=== PATIENT | female | born 1950 | race Two or more races ===

== ENCOUNTER 2024-06-01 13:17 | Emergency (ER) | payer MEDICARE, OTHER ==
[~2024-06-01] VITALS: Ht 157.5 cm; Wt 67.1 kg
[2024-06-01] MEDS: SODIUM CHLORIDE 0.9% 1,000 ML IV ONE (16:46)
[2024-06-01 16:47] LABS: Basophils # (auto) 0 10 ^3/uL (0-0.2); Basophils % (auto) 0.4 % (0.0-2.0); Eosinophils # (auto) 0.6 10 ^3/uL (0-0.8); Hematocrit 40.4 % (36.0-46.0); Hemoglobin 13.7 g/dL (12.2-16.2); Lymphocytes # (auto) 1.8 10 ^3/uL (0.4-5.4); Lymphocytes % (auto) 27.6 % (10.0-50.0); Mean Corpuscular Hemoglobin 28.2 pg (28.0-32.0); Mean Corpuscular Hgb Conc. 33.8 g/dL (32.0-36.0); Mean Corpuscular Volume 83.4 fL (80.0-100.0); Monocytes # (auto) 0.6 10 ^3/uL (0-1.3); Monocytes % (auto) 9.1 % (0.0-12.0); Neutrophils # (auto) 3.5 10 ^3/uL (1.6-8.6); Neutrophils % (auto) 53.9 % (37.0-80.0); Nucleated Red Blood Cells % 0.3 %; Red Blood Cells 4.85 10^6/uL (4.0-5.20); Red Cell Distribution Width 13.3 % (11.8-14.3); White Blood Cell 6.5 10^3/uL (4.4-10.8)
[2024-06-01 16:56] LABS: Chloride 101 mmol/L (98-107); Potassium 4.1 mmol/L (3.5-5.1); Sodium 135 mmol/L (136-145)
[2024-06-01 16:57] LABS: Anion Gap 7 (5-15); Calcium 8.9 mg/dL (8.7-10.4); Carbon Dioxide 27 mmol/L (20-30)
[2024-06-01 17:02] LABS: Glucose 377 mg/dL (74-106)
[2024-06-01] MEDS: InsuLIN REG 1unit/0.01ml Soln (100units/ml) IV ONE (17:34)
[2024-06-01] MEDS: cefTRIAXone 1GM/50ML D5W 50 ML IV ONE (17:38)
[2024-06-01] MEDS: methylPREDNISolone SOD SUCC 125 MG/2 ML VL IV ONE (17:38)
[2024-06-01 17:52] LABS: Urine Bacteria None Seen /hpf (None Seen)
[2024-06-01 17:55] LABS: BUN/Creatinine Ratio 13.2 (10.0-20.0); Blood Urea Nitrogen 12 mg/dL (9-23)
[2024-06-01] MEDS: SODIUM CHLORIDE 0.9% 500 ML IV ONE (17:59)
[2024-06-01] MEDS ORDERED: TRIA0.1O TOP (18:04)
[2024-06-01] MEDS ORDERED: METH4PAK PO (18:04)
[2024-06-01] MEDS ORDERED: CEPH500C PO (18:04)
[2024-06-01] MEDS ORDERED: KETO2CRE4 TOP (18:04)
[2024-06-01] MEDS ORDERED: METF-370 PO (18:04)
[2024-06-01 18:05] LABS: Urine Blood Negative /uL (Negative); Urine Clarity Clear (Clear); Urine Color Light-Yellow (Yellow); Urine Hyaline Cast FEW /lpf (0 - 2); Urine Protein, UAD TRACE (Negative); Urine Urobilinogen Normal (Negative); Urine WBC 6 /hpf (0 - 5); Urine pH 5.5 (5.0-9.0)
[2024-06-01 18:10] VITALS: BP 183/92; PULSE 84; RESP 16; TEMP 98.3; O2SAT 96
== END 2024-06-01 18:37 | disposition home or self-care (01) ==
LOC: ER 13:17
DX: L20.9 Atopic dermatitis, unspecified (principal); J45.909 Unspecified asthma, uncomplicated; E11.9 Type 2 diabetes mellitus without complications; E78.5 Hyperlipidemia, unspecified; I10 Essential (primary) hypertension; Z88.1 Allergy status to other antibiotic agents; Z91.199 Patient's noncompliance with other medical treatment and regimen due to unspecified reason
CPT/HCPCS: 36415; 80048; 81001; 82962; 83605; 85025; 96361; 96365; 96375; 99284; J0696; J1815; J2919; J7030; J7040

== ENCOUNTER 2024-06-17 08:42 | Inpatient (IN) | payer MEDICARE ==
[~2024-06-17] VITALS: Ht 154.9 cm; Wt 70.8 kg
[~2024-06-17 08:42] MED LIST: CEPH500C PO; METF-370 PO; METH4PAK PO; TRIA0.1O TOP
[2024-06-17] MEDS: dilTIAZem 25 MG/5 ML VIAL IV ONE ×2 (08:46→08:47)
[2024-06-17] MEDS ORDERED: DEXTROSE (50%) 50ML SYRG IV PRN ×2 (09:00→23:45)
[2024-06-17] MEDS: dilTIAZem 125mg/125ml BAG KIT 125 ML IV ONE (09:15)
[2024-06-17] MEDS: INSULIN LANTUS (GLARGINE) 1 /0.01ml (100units/ml) SC ONE (09:19)
[2024-06-17] MEDS: SODIUM CHLORIDE 0.9% 1,000 ML IVB ONE (09:22)
[2024-06-17 09:26] LABS: Mean Corpuscular Volume 91.8 fL (80.0-100.0)
[2024-06-17 09:29] LABS: Hematocrit 45.7 % (36.0-46.0); Hemoglobin 13.9 g/dL (12.2-16.2); Mean Corpuscular Hgb Conc. 30.5 g/dL (32.0-36.0); Platelet Count (auto) 292 10^3/uL (140-450); Red Blood Cells 4.98 10^6/uL (4.0-5.20); White Blood Cell 13.4 10^3/uL (4.4-10.8)
[2024-06-17 09:30] VITALS: PULSE 180; RESP 18; O2SAT 99
[2024-06-17 09:34] LABS: Base Excess -10.4 mmol/L (-2.0-2.0)
[2024-06-17 09:37] LABS: Basophils % (manual) 0 (0.0-2.0); Blast Cells 0; Metamyelocytes % 0; Myelocytes % 0; Promyelocytes % 0; Reactive Lymphocytes 0
[2024-06-17] MEDS ORDERED: NOREPINEPHRINE 8 MG/250ML KIT 250 ML IV SCH (09:45)
[2024-06-17 09:46] LABS: Alanine Aminotransferase 10 U/L (7-40); Albumin 2.6 g/dL (3.2-4.8); Alkaline Phosphatase 121 U/L (46-116); Anion Gap 19 (5-15); Aspartate Aminotransferase 10 U/L (13-40); BUN/Creatinine Ratio 37.1 (10.0-20.0); Bilirubin, Total 0.3 mg/dL (0.2-1.0); Blood Alcohol < 3.0 mg/dL (<10); Blood Urea Nitrogen 62 mg/dL (9-23); Calcium 8.2 mg/dL (8.7-10.4); Carbon Dioxide 18 mmol/L (20-30); Chloride 107 mmol/L (98-107); Potassium 5.1 mmol/L (3.5-5.1); Sodium 144 mmol/L (136-145); Total Protein 4.5 g/dL (5.7-8.2)
[2024-06-17 09:55] LABS: Glucose 911 mg/dL (74-106); Lactic Acid w/Reflex 6.8 mmol/L (0.4-2.0)
[2024-06-17] MEDS: PHENYLEPHRINE IV 250 ML IV ONE (10:00)
[2024-06-17] MEDS: AMIODARONE 450mg/250ml AE 250 ML IV SCH ×2 (10:09→16:00)
[2024-06-17] MEDS: ACCU-CHEK COMFORT CURVE STRIP VI SCH (10:10)
[2024-06-17] MEDS: INSULIN DRIP 100 UNIT/100ML 100 ML IV SCH ×2 (10:37→23:24)
[2024-06-17] MEDS: SODIUM CHLORIDE 0.9% 1,000 ML IV ONE (10:40)
[2024-06-17] MEDS: InsuLIN REG 1unit/0.01ml Soln (100units/ml) IV ONE (10:43)
[2024-06-17 10:56] LABS: Eosinophils % (manual) 21 (0-7); Lymphocytes % (manual) 19 (10.0-50.0); Monocytes % (manual) 6 (0-12)
[2024-06-17 10:57] LABS: Band Neutrophils % (manual) 18
[2024-06-17 10:58] LABS: Anisocytosis Slight; Hypochromia Moderate; Platelet Estimate Adequate
[2024-06-17] MEDS: PIPERACILLIN-TAZOB 3.375GM 100 ML IV ONE (11:02)
[2024-06-17] MEDS: SODIUM BICARB 8.4% 50Meq/50ml SYR Vial IV ONE (11:02)
[2024-06-17] MEDS: MIDAZOLAM HCL 2MG/2ML 2ml VIAL (1mg/ml) IV ONE (12:03)
[2024-06-17] MEDS ORDERED: HYDROmorphone HCL 2 MG/ML VL/or syr IV PRN (13:00)
[2024-06-17] MEDS ORDERED: ONDANSETRON HCL 4 MG/2 ML VIAL IV PRN (13:00)
[2024-06-17] MEDS: diphenhdrAMINE HCL 50 MG/1 ML VL IV ONE (13:27)
[2024-06-17] MEDS: CLINDAMYCIN 300MG IV 50 ML IV ONE (13:38)
[2024-06-17] MEDS: SODIUM CHLOR 0.9% PF (SALINE LOCK) 10ML VIAL/SYR IV SCH ×2 (13:43→21:31)
[2024-06-17] MEDS ORDERED: SODIUM CHLORIDE 0.9% 1,000 ML IV SCH (14:15)
[2024-06-17] MEDS ORDERED: VANCOMYCIN PER PHARMACY 0 MG IV SCH (14:15)
[2024-06-17 14:28] LABS: Urine Bacteria FEW /hpf (None Seen); Urine Blood TRACE /uL (Negative); Urine Clarity Clear (Clear); Urine Color Light-Yellow (Yellow); Urine Mucus FEW (None Seen); Urine Protein, UAD TRACE (Negative); Urine Urobilinogen Normal (Negative); Urine WBC 3 /hpf (0 - 5)
[2024-06-17 14:35] LABS: Amphetamine Screen, Urine Neg (NEGATIVE); Benzodiazephine Screen, Urine Neg (NEGATIVE)
[2024-06-17 14:36] LABS: Barbiturate Scree,Urine Neg (NEGATIVE); Cannabinoid Screen, Urine Neg (NEGATIVE); Cocaine Screen, Urine Neg (NEGATIVE); Opiate Scree,Urine Neg (NEGATIVE); Phencyclidine Screen, Urine Neg (NEGATIVE)
[2024-06-17 14:58] LABS: Chloride 116 mmol/L (98-107)
[2024-06-17 14:59] LABS: Anion Gap 13 (5-15); Calcium 8.2 mg/dL (8.7-10.4); Carbon Dioxide 23 mmol/L (20-30)
[2024-06-17 15:05] LABS: BUN/Creatinine Ratio 27.6 (10.0-20.0)
[2024-06-17 15:10] LABS: Blood Urea Nitrogen 42 mg/dL (9-23); Sodium 152 mmol/L (136-145)
[2024-06-17 15:12] LABS: Glucose 568 mg/dL (74-106)
[2024-06-17] MEDS: DIGOXIN (250MCG/ML) 2 ML AMPULE IV ONE (15:26)
[2024-06-17] MEDS: SODIUM CHLORIDE 0.9% 2,000 ML IV ONE (15:27)
[2024-06-17] MEDS: VANCOMYCIN 1.5GM/300ML 300 ML IV ONE (15:27)
[2024-06-17 17:06] LABS: INR 1.23 (0.9-1.15); Partial Thromboplastin Time 29.6 SEC (24.5-34.5); Prothrombin Time 12.8 sec (9.3-11.8)
[2024-06-17 17:15] LABS: Magnesium 2.7 mg/dL (1.6-2.6)
[2024-06-17 17:16] LABS: Phosphorus 2.5 mg/dL (2.4-5.1)
[2024-06-17 17:26] LABS: Lactic Acid w/Reflex 5.9 mmol/L (0.4-2.0)
[2024-06-17] MEDS: LIDOCAINE 1% (LOCAL ANESTH.) PF 5ml SDV ID ONE (18:16)
[2024-06-17] MEDS: SOD CHL 0.45% WITH 20MEQ KCL 1,000 ML IV SCH (18:59)
[2024-06-17 19:54] LABS: Chloride 123 mmol/L (98-107); Potassium 3.8 mmol/L (3.5-5.1)
[2024-06-17 19:55] LABS: Anion Gap 8 (5-15); Calcium 7.7 mg/dL (8.7-10.4); Carbon Dioxide 26 mmol/L (20-30)
[2024-06-17 19:57] LABS: Sodium 157 mmol/L (136-145)
[2024-06-17 20:00] LABS: BUN/Creatinine Ratio 31.5 (10.0-20.0); Blood Urea Nitrogen 40 mg/dL (9-23); Glucose 199 mg/dL (74-106)
[2024-06-17 20:03] LABS: Magnesium 2.6 mg/dL (1.6-2.6)
[2024-06-17 20:04] LABS: Phosphorus 2.8 mg/dL (2.4-5.1)
[2024-06-17] MEDS: PHENYLEPHRINE IV 250 ML IV SCH (21:20)
[2024-06-17] MEDS: CEFEPIME 2GM/50ML NS 50 ML IV SCH (21:47)
[2024-06-17 22:15] LABS: Protein, Urine 56.8 mg/dL (0.0-11.9)
[2024-06-17 22:17] LABS: Creatinine, Urine 29.26 mg/dL (30.0-125.0)
[2024-06-17 22:31] LABS: Chloride 123 mmol/L (98-107); Sodium 155 mmol/L (136-145)
[2024-06-17 22:32] LABS: Anion Gap 8 (5-15); Calcium 7.7 mg/dL (8.7-10.4); Carbon Dioxide 24 mmol/L (20-30)
[2024-06-17 22:37] LABS: Blood Urea Nitrogen 32 mg/dL (9-23); Glucose 167 mg/dL (74-106)
[2024-06-17 22:38] LABS: Magnesium 2.6 mg/dL (1.6-2.6)
[2024-06-17 22:39] LABS: Phosphorus 2.9 mg/dL (2.4-5.1)
[2024-06-18] MEDS ORDERED: ACCU-CHEK COMFORT CURVE STRIP VI SCH
[2024-06-18] MEDS: InsuLIN REG 1unit/0.01ml Soln (100units/ml) SC SCH (01:34)
[2024-06-18] MEDS: AMIODARONE BOLUS KIT 100 ML IV ONE (01:39)
[2024-06-18 05:25] LABS: Hematocrit 44.2 % (36.0-46.0); Hemoglobin 14.5 g/dL (12.2-16.2); Mean Corpuscular Hemoglobin 28.1 pg (28.0-32.0); Mean Corpuscular Hgb Conc. 32.9 g/dL (32.0-36.0); Mean Corpuscular Volume 85.6 fL (80.0-100.0); Platelet Count (auto) 191 10^3/uL (140-450); Red Blood Cells 5.16 10^6/uL (4.0-5.20); White Blood Cell 22.6 10^3/uL (4.4-10.8)
[2024-06-18 05:40] LABS: Alanine Aminotransferase 11 U/L (7-40); Alkaline Phosphatase 116 U/L (46-116); Anion Gap 11 (5-15); BUN/Creatinine Ratio 26.4 (10.0-20.0); Blood Urea Nitrogen 37 mg/dL (9-23); Calcium 7.8 mg/dL (8.7-10.4); Carbon Dioxide 22 mmol/L (20-30); Chloride 123 mmol/L (98-107); Glucose 197 mg/dL (74-106); Potassium 4.6 mmol/L (3.5-5.1); Sodium 156 mmol/L (136-145)
[2024-06-18 05:41] LABS: Albumin 2.3 g/dL (3.2-4.8); Aspartate Aminotransferase 15 U/L (13-40); Bilirubin, Total 0.4 mg/dL (0.2-1.0); Phosphorus 3.2 mg/dL (2.4-5.1); Total Protein 4.7 g/dL (5.7-8.2)
[2024-06-18 05:42] LABS: Basophils % (manual) 0 (0.0-2.0); Blast Cells 0; Metamyelocytes % 0; Myelocytes % 0; Promyelocytes % 0; Reactive Lymphocytes 0
[2024-06-18] MEDS ORDERED: VANCOMYCIN PER PHARMACY 0 MG IV SCH (07:00)
[2024-06-18 07:20] VITALS: O2SAT 96
[2024-06-18 08:42] LABS: Lactic Acid w/Reflex 2.8 mmol/L (0.4-2.0); Magnesium 2.6 mg/dL (1.6-2.6)
[2024-06-18 08:42] LABS: Band Neutrophils % (manual) 20; Eosinophils % (manual) 52 (0-7); Lymphocytes % (manual) 11 (10.0-50.0); Monocytes % (manual) 2 (0-12); Platelet Estimate Adequate
[2024-06-18] MEDS: NOREPINEPHRINE 8 MG/250ML KIT 250 ML IV ONE (08:56)
[2024-06-18] MEDS: NOREPINEPHRINE 8 MG/250ML KIT 250 ML IV SCH (08:57)
[2024-06-18] MEDS: D5W 5% 1,000 ML IV SCH ×2 (09:02→12:00)
[2024-06-18] MEDS: ACCU-CHEK COMFORT CURVE STRIP VI ONE (10:00)
[2024-06-18] MEDS ORDERED: INSULIN LANTUS (GLARGINE) 1 /0.01ml (100units/ml) SC SCH (10:00)
[2024-06-18 10:38] LABS: Base Excess -5.2 mmol/L (-2.0-2.0)
[2024-06-18] MEDS: PANTOPRAZOLE 40 MG/10 ML VIAL INJ IV SCH (10:48)
[2024-06-18] MEDS: INSULIN LANTUS (GLARGINE) 1 /0.01ml (100units/ml) SC SCH (10:49)
[2024-06-18] MEDS: ENOXAPARIN SOD 80 MG/0.8ML SYRINGE SC SCH (11:29)
[2024-06-18] MEDS: SOD CHL 0.45% 1,000 ML IV SCH ×3 (12:00→20:00)
[2024-06-18] MEDS: ACCU-CHEK COMFORT CURVE STRIP VI SCH (12:15)
[2024-06-18 13:21] LABS: COVID19 ANTIGEN SOFIA FIA NEGATIVE (NEGATIVE); Rapid Influenza A Negative (Negative); Rapid Influenza B Negative (Negative)
[2024-06-18 15:21] LABS: Alkaline Phosphatase 125 U/L (46-116); Anion Gap 10 (5-15); Aspartate Aminotransferase 12 U/L (13-40); BUN/Creatinine Ratio 32.1 (10.0-20.0); Calcium 7.4 mg/dL (8.7-10.4); Carbon Dioxide 20 mmol/L (20-30); Chloride 116 mmol/L (98-107); Potassium 4.7 mmol/L (3.5-5.1); Sodium 146 mmol/L (136-145)
[2024-06-18 15:22] LABS: Albumin 2.3 g/dL (3.2-4.8); Bilirubin, Total 0.3 mg/dL (0.2-1.0); Total Protein 4.2 g/dL (5.7-8.2)
[2024-06-18 16:05] LABS: Alanine Aminotransferase < 9 U/L (7-40); Blood Urea Nitrogen 54 mg/dL (9-23)
[2024-06-18 16:09] LABS: Glucose 481 mg/dL (74-106)
[2024-06-18 16:10] LABS: Lactic Acid w/Reflex 2.3 mmol/L (0.4-2.0)
[2024-06-18] MEDS: predniSONE 20 MG TAB PO ONE (18:58)
[2024-06-18 19:30] VITALS: PULSE 66; RESP 15; O2SAT 97
[2024-06-18 22:23] LABS: Alkaline Phosphatase 122 U/L (46-116); Calcium 7.7 mg/dL (8.7-10.4); Chloride 121 mmol/L (98-107)
[2024-06-18 22:24] LABS: Albumin 2.3 g/dL (3.2-4.8); Anion Gap 8 (5-15); Aspartate Aminotransferase 9 U/L (13-40); BUN/Creatinine Ratio 21.9 (10.0-20.0); Bilirubin, Total 0.3 mg/dL (0.2-1.0); Carbon Dioxide 22 mmol/L (20-30); Glucose 245 mg/dL (74-106); Potassium 4.5 mmol/L (3.5-5.1); Total Protein 4.5 g/dL (5.7-8.2)
[2024-06-18 22:26] LABS: Alanine Aminotransferase < 9 U/L (7-40); Blood Urea Nitrogen 37 mg/dL (9-23); Sodium 151 mmol/L (136-145)
[2024-06-19 02:47] LABS: Chloride 122 mmol/L (98-107); Potassium 4.7 mmol/L (3.5-5.1); Sodium 152 mmol/L (136-145)
[2024-06-19 02:48] LABS: Anion Gap 9 (5-15); Carbon Dioxide 21 mmol/L (20-30)
[2024-06-19 02:49] LABS: Calcium 7.7 mg/dL (8.7-10.4)
[2024-06-19 02:53] LABS: BUN/Creatinine Ratio 23.5 (10.0-20.0); Blood Urea Nitrogen 38 mg/dL (9-23); Glucose 206 mg/dL (74-106)
[2024-06-19 07:01] LABS: Basophils # (auto) 0 10 ^3/uL (0-0.2); Basophils % (auto) 0.5 % (0.0-2.0); Eosinophils # (auto) 0.7 10 ^3/uL (0-0.8); Eosinophils % (auto) 6.8 % (0.0-7.0); Hematocrit 40.3 % (36.0-46.0); Hemoglobin 12.7 g/dL (12.2-16.2); Lymphocytes % (auto) 19.4 % (10.0-50.0); Mean Corpuscular Hemoglobin 27.6 pg (28.0-32.0); Mean Corpuscular Hgb Conc. 31.5 g/dL (32.0-36.0); Mean Corpuscular Volume 87.5 fL (80.0-100.0); Monocytes # (auto) 0.3 10 ^3/uL (0-1.3); Monocytes % (auto) 2.6 % (0.0-12.0); Neutrophils # (auto) 7.2 10 ^3/uL (1.6-8.6); Neutrophils % (auto) 70.7 % (37.0-80.0); Nucleated Red Blood Cells % 0.4 %; Platelet Count (auto) 104 10^3/uL (140-450); Red Blood Cells 4.61 10^6/uL (4.0-5.20); Red Cell Distribution Width 15.6 % (11.8-14.3); White Blood Cell 10.1 10^3/uL (4.4-10.8)
[2024-06-19 07:14] LABS: Alkaline Phosphatase 111 U/L (46-116); Anion Gap 8 (5-15); Aspartate Aminotransferase 10 U/L (13-40); BUN/Creatinine Ratio 19.9 (10.0-20.0); Blood Urea Nitrogen 31 mg/dL (9-23); Calcium 7.6 mg/dL (8.7-10.4); Carbon Dioxide 20 mmol/L (20-30); Chloride 123 mmol/L (98-107); Creatine Kinase IFCC 46 U/L (34-145); Glucose 213 mg/dL (74-106); Magnesium 2.6 mg/dL (1.6-2.6); Potassium 4.7 mmol/L (3.5-5.1); Sodium 151 mmol/L (136-145)
[2024-06-19 07:15] LABS: Bilirubin, Total 0.3 mg/dL (0.2-1.0); Total Protein 4.3 g/dL (5.7-8.2)
[2024-06-19 07:24] LABS: Alanine Aminotransferase < 9 U/L (7-40)
[2024-06-19 07:35] VITALS: PULSE 57; RESP 11; O2SAT 97
[2024-06-19 07:50] LABS: Basophils % (manual) 0 (0.0-2.0); Blast Cells 0; Metamyelocytes % 0; Myelocytes % 0; Promyelocytes % 0; Reactive Lymphocytes 0
[2024-06-19] MEDS: VANCOMYCIN 750mg/150ml 150 ML IV ONE (10:12)
[2024-06-19] MEDS: predniSONE 20 MG TAB PO SCH (10:23)
[2024-06-19 11:18] LABS: Potassium 3.5 mmol/L (3.5-5.1)
[2024-06-19 11:19] LABS: Anion Gap 5 (5-15); Calcium 6.2 mg/dL (8.7-10.4); Carbon Dioxide 19 mmol/L (20-30)
[2024-06-19 11:24] LABS: Band Neutrophils % (manual) 12; Eosinophils % (manual) 8 (0-7); Lymphocytes % (manual) 16 (10.0-50.0); Monocytes % (manual) 1 (0-12); Platelet Estimate Decreased
[2024-06-19 11:24] LABS: BUN/Creatinine Ratio 26.1 (10.0-20.0); Blood Urea Nitrogen 31 mg/dL (9-23); Glucose 357 mg/dL (74-106)
[2024-06-19 11:25] LABS: Platelet Count (auto) 104 10^3/uL (140-450)
[2024-06-19 11:27] LABS: Chloride 109 mmol/L (98-107); Sodium 133 mmol/L (136-145)
[2024-06-19] MEDS ORDERED: SOD CHL 0.45% 1,000 ML IV SCH (16:30)
[2024-06-19 17:45] VITALS: BP 136/70; PULSE 57; RESP 18; TEMP 97.8; O2SAT 95
[2024-06-19] MEDS: DOXYCYCLINE 100MG/250ML 250 ML IV SCH (18:00)
[2024-06-19] MEDS: FREE WATER PO SCH (18:00)
[2024-06-19 20:00] VITALS: PULSE 61; PULSE 63; RESP 18; O2SAT 95
[2024-06-19] MEDS: AMIODARONE HCL 200 MG TAB PO SCH (21:34)
[2024-06-20] VITALS (8 sets, daily range): BP systolic 114–149; BP diastolic 51–67; PULSE 57–80; RESP 16–18; TEMP 97.8–99.2; O2SAT 94–97
[2024-06-20 06:06] LABS: RPR Non Reactive (Non Reactive)
[2024-06-20 06:50] LABS: Basophils # (auto) 0.1 10 ^3/uL (0-0.2); Basophils % (auto) 0.4 % (0.0-2.0); Eosinophils # (auto) 0.6 10 ^3/uL (0-0.8); Eosinophils % (auto) 5.1 % (0.0-7.0); Hematocrit 41.5 % (36.0-46.0); Hemoglobin 13.4 g/dL (12.2-16.2); Lymphocytes # (auto) 2.3 10 ^3/uL (0.4-5.4); Lymphocytes % (auto) 19.2 % (10.0-50.0); Mean Corpuscular Hemoglobin 27.4 pg (28.0-32.0); Mean Corpuscular Hgb Conc. 32.3 g/dL (32.0-36.0); Mean Corpuscular Volume 84.9 fL (80.0-100.0); Monocytes # (auto) 0.3 10 ^3/uL (0-1.3); Monocytes % (auto) 2.6 % (0.0-12.0); Neutrophils # (auto) 8.5 10 ^3/uL (1.6-8.6); Neutrophils % (auto) 72.7 % (37.0-80.0); Nucleated Red Blood Cells % 0.1 %; Platelet Count (auto) 131 10^3/uL (140-450); Red Blood Cells 4.89 10^6/uL (4.0-5.20); Red Cell Distribution Width 15.3 % (11.8-14.3); White Blood Cell 11.7 10^3/uL (4.4-10.8)
[2024-06-20 06:54] LABS: Alanine Aminotransferase 14 U/L (7-40); Albumin 2.5 g/dL (3.2-4.8); Alkaline Phosphatase 204 U/L (46-116); Anion Gap 10 (5-15); Aspartate Aminotransferase 16 U/L (13-40); BUN/Creatinine Ratio 31.2 (10.0-20.0); Bilirubin, Total 0.5 mg/dL (0.2-1.0); Calcium 8.4 mg/dL (8.7-10.4); Carbon Dioxide 22 mmol/L (20-30); Glucose 142 mg/dL (74-106); Magnesium 2.4 mg/dL (1.6-2.6); Potassium 3.7 mmol/L (3.5-5.1); Sodium 151 mmol/L (136-145); Total Protein 4.9 g/dL (5.7-8.2)
[2024-06-20 06:55] LABS: Blood Urea Nitrogen 44 mg/dL (9-23); Chloride 119 mmol/L (98-107)
[2024-06-20] MEDS: ACCU-CHEK COMFORT CURVE STRIP VI SCH (08:29)
[2024-06-20 08:56] LABS: Hepatitis B Surface Antibody Negative (Negative)
[2024-06-20 09:08] LABS: Hepatitis B Surface Antigen Negative (Negative)
[2024-06-20 12:07] LABS: Anti-Centromere B Antibody <0.2 AI (0.0-0.9); Anti-Jo-1 Antibody <0.2 AI (0.0-0.9); Anti-Nuclear Antibody Direct Positive (Negative); Anti-dsDNA Antibody 1 IU/mL (0-9); Antichromatin Antibody <0.2 AI (0.0-0.9); Antiscleroderma-70 Antibody <0.2 AI (0.0-0.9); RNP Antibody <0.2 AI (0.0-0.9); Sjogren's Anti-SS-A Antibody 0.2 AI (0.0-0.9); Sjogren's Anti-SS-B Antibody 1.3 AI (0.0-0.9); Smith Antibody <0.2 AI (0.0-0.9)
[2024-06-20] MEDS ORDERED: SOD CHL 0.45% 1,000 ML IV SCH (12:30)
[2024-06-20] MEDS: ERGOCALCIFEROL 50,000 UNIT(1.25MG) CAP PO SCH (12:50)
[2024-06-20] MEDS: D5W 5% 1,000 ML IV SCH (13:01)
[2024-06-21] VITALS (8 sets, daily range): BP systolic 95–139; BP diastolic 58–72; PULSE 57–101; RESP 16–18; TEMP 97.6–98.1; O2SAT 95–99
[2024-06-21] MEDS: INSULIN LANTUS (GLARGINE) 1 /0.01ml (100units/ml) SC SCH (07:21)
[2024-06-21] MEDS ORDERED: DEXTROSE (50%) 50ML SYRG IV PRN (09:00)
[2024-06-21 09:42] LABS: Basophils # (auto) 0.1 10 ^3/uL (0-0.2); Basophils % (auto) 0.4 % (0.0-2.0); Eosinophils # (auto) 1.7 10 ^3/uL (0-0.8); Eosinophils % (auto) 11.2 % (0.0-7.0); Hematocrit 41.2 % (36.0-46.0); Hemoglobin 13.5 g/dL (12.2-16.2); Lymphocytes # (auto) 2.5 10 ^3/uL (0.4-5.4); Lymphocytes % (auto) 16.9 % (10.0-50.0); Mean Corpuscular Hgb Conc. 32.9 g/dL (32.0-36.0); Mean Corpuscular Volume 85.3 fL (80.0-100.0); Monocytes # (auto) 0.3 10 ^3/uL (0-1.3); Monocytes % (auto) 2.4 % (0.0-12.0); Neutrophils # (auto) 10.3 10 ^3/uL (1.6-8.6); Neutrophils % (auto) 69.1 % (37.0-80.0); Nucleated Red Blood Cells % 0.1 %; Platelet Count (auto) 123 10^3/uL (140-450); Red Blood Cells 4.83 10^6/uL (4.0-5.20); Red Cell Distribution Width 15.1 % (11.8-14.3); White Blood Cell 14.8 10^3/uL (4.4-10.8)
[2024-06-21 10:51] LABS: Alkaline Phosphatase 229 U/L (46-116); Anion Gap 4 (5-15); Aspartate Aminotransferase 43 U/L (13-40); Calcium 8.4 mg/dL (8.7-10.4); Carbon Dioxide 23 mmol/L (20-30); Chloride 112 mmol/L (98-107); Potassium 3.5 mmol/L (3.5-5.1); Sodium 139 mmol/L (136-145)
[2024-06-21 10:52] LABS: BUN/Creatinine Ratio 26.4 (10.0-20.0); Glucose 124 mg/dL (74-106)
[2024-06-21 10:54] LABS: Albumin 2.7 g/dL (3.2-4.8); Total Protein 5.3 g/dL (5.7-8.2)
[2024-06-21] MEDS ORDERED: VANCOMYCIN PER PHARMACY 0 MG IV SCH (11:00)
[2024-06-21 11:04] LABS: Blood Urea Nitrogen 28 mg/dL (9-23)
[2024-06-21 11:06] LABS: Alanine Aminotransferase 19 U/L (7-40); Bilirubin, Total 0.5 mg/dL (0.2-1.0)
[2024-06-21] MEDS: ACCU-CHEK COMFORT CURVE STRIP VI SCH (12:38)
[2024-06-21] MEDS: POTASSIUM EFFERVESENT TAB 25 MEQ PO ONE (12:39)
[2024-06-21] MEDS: InsuLIN REG 1unit/0.01ml Soln (100units/ml) SC SCH (12:40)
[2024-06-21] MEDS: VANCOMYCIN 1,500 MG in D5W 5% 250 ML IV ONE (13:04)
[2024-06-21] MEDS: METOPROLOL SUCCINATE XL 50 MG TAB PO SCH (21:56)
[2024-06-22] VITALS (8 sets, daily range): BP systolic 118–147; BP diastolic 54–76; PULSE 56–76; RESP 15–18; TEMP 97.6–98.7; O2SAT 93–100
[2024-06-22 06:07] LABS: Basophils # (auto) 0.1 10 ^3/uL (0-0.2); Basophils % (auto) 0.6 % (0.0-2.0); Eosinophils # (auto) 0.6 10 ^3/uL (0-0.8); Eosinophils % (auto) 4.7 % (0.0-7.0); Hematocrit 38.3 % (36.0-46.0); Hemoglobin 12.6 g/dL (12.2-16.2); Lymphocytes % (auto) 15.7 % (10.0-50.0); Mean Corpuscular Hgb Conc. 32.9 g/dL (32.0-36.0); Mean Corpuscular Volume 84.9 fL (80.0-100.0); Monocytes # (auto) 0.3 10 ^3/uL (0-1.3); Monocytes % (auto) 2.7 % (0.0-12.0); Neutrophils # (auto) 9.7 10 ^3/uL (1.6-8.6); Neutrophils % (auto) 76.3 % (37.0-80.0); Nucleated Red Blood Cells % 0.1 %; Platelet Count (auto) 112 10^3/uL (140-450); Red Blood Cells 4.51 10^6/uL (4.0-5.20); Red Cell Distribution Width 14.9 % (11.8-14.3); White Blood Cell 12.7 10^3/uL (4.4-10.8)
[2024-06-22 06:14] LABS: Alanine Aminotransferase 24 U/L (7-40); Albumin 2.5 g/dL (3.2-4.8); Alkaline Phosphatase 234 U/L (46-116); Anion Gap 4 (5-15); Aspartate Aminotransferase 35 U/L (13-40); BUN/Creatinine Ratio 26.8 (10.0-20.0); Bilirubin, Total 0.5 mg/dL (0.2-1.0); Blood Urea Nitrogen 26 mg/dL (9-23); Carbon Dioxide 25 mmol/L (20-30); Chloride 113 mmol/L (98-107); Glucose 280 mg/dL (74-106); Potassium 4.3 mmol/L (3.5-5.1); Sodium 142 mmol/L (136-145)
[2024-06-22 06:15] LABS: Total Protein 4.9 g/dL (5.7-8.2)
[2024-06-22] MEDS ORDERED: DEXTROSE (50%) 50ML SYRG IV PRN (07:45)
[2024-06-22] MEDS: InsuLIN REG 1unit/0.01ml Soln (100units/ml) SC SCH (08:00)
[2024-06-22] MEDS: INSULIN LANTUS (GLARGINE) 1 /0.01ml (100units/ml) SC SCH (10:00)
[2024-06-22] MEDS: ACCU-CHEK COMFORT CURVE STRIP VI SCH (10:04)
[2024-06-22] MEDS: ATORVASTATIN 20 MG TAB PO SCH (21:20)
[2024-06-22] MEDS: methylPREDNISolone SOD SUCC 40 MG/ML VL IV SCH (21:21)
[2024-06-22] MEDS: ENOXAPARIN SOD 80 MG/0.8ML SYRINGE SC SCH (21:22)
[2024-06-23] VITALS (8 sets, daily range): BP systolic 113–143; BP diastolic 52–67; PULSE 52–81; RESP 15–18; TEMP 97.9–98.4; O2SAT 96–100
[2024-06-23 07:06] LABS: Basophils # (auto) 0 10 ^3/uL (0-0.2); Basophils % (auto) 0.3 % (0.0-2.0); Eosinophils # (auto) 0 10 ^3/uL (0-0.8); Eosinophils % (auto) 0.4 % (0.0-7.0); Hematocrit 35.4 % (36.0-46.0); Hemoglobin 11.4 g/dL (12.2-16.2); Lymphocytes % (auto) 19.1 % (10.0-50.0); Mean Corpuscular Hemoglobin 27.3 pg (28.0-32.0); Mean Corpuscular Hgb Conc. 32.3 g/dL (32.0-36.0); Mean Corpuscular Volume 84.5 fL (80.0-100.0); Monocytes # (auto) 0.2 10 ^3/uL (0-1.3); Monocytes % (auto) 2.2 % (0.0-12.0); Neutrophils # (auto) 8.3 10 ^3/uL (1.6-8.6); Nucleated Red Blood Cells % 0.2 %; Platelet Count (auto) 115 10^3/uL (140-450); Red Blood Cells 4.19 10^6/uL (4.0-5.20); Red Cell Distribution Width 14.8 % (11.8-14.3); White Blood Cell 10.7 10^3/uL (4.4-10.8)
[2024-06-23 07:30] LABS: Alanine Aminotransferase 32 U/L (7-40); Albumin 2.4 g/dL (3.2-4.8); Alkaline Phosphatase 199 U/L (46-116); Anion Gap 5 (5-15); Aspartate Aminotransferase 25 U/L (13-40); BUN/Creatinine Ratio 29.5 (10.0-20.0); Bilirubin, Total 0.5 mg/dL (0.2-1.0); Blood Urea Nitrogen 18 mg/dL (9-23); Calcium 7.6 mg/dL (8.7-10.4); Carbon Dioxide 26 mmol/L (20-30); Chloride 111 mmol/L (98-107); Glucose 142 mg/dL (74-106); Magnesium 1.6 mg/dL (1.6-2.6); Potassium 3.9 mmol/L (3.5-5.1); Sodium 142 mmol/L (136-145); Total Protein 4.6 g/dL (5.7-8.2)
[2024-06-23] MEDS: VANCOMYCIN 1GM/200ML 200 ML IV SCH (13:34)
[2024-06-24] VITALS (7 sets, daily range): BP systolic 100–162; BP diastolic 35–64; PULSE 52–73; RESP 17–18; TEMP 97.4–98.7; O2SAT 97–100
[2024-06-24 05:47] LABS: Basophils # (auto) 0.1 10 ^3/uL (0-0.2); Basophils % (auto) 0.4 % (0.0-2.0); Eosinophils # (auto) 0 10 ^3/uL (0-0.8); Eosinophils % (auto) 0.3 % (0.0-7.0); Hematocrit 38.8 % (36.0-46.0); Hemoglobin 12.6 g/dL (12.2-16.2); Lymphocytes # (auto) 2.3 10 ^3/uL (0.4-5.4); Lymphocytes % (auto) 17.4 % (10.0-50.0); Mean Corpuscular Hemoglobin 27.7 pg (28.0-32.0); Mean Corpuscular Hgb Conc. 32.4 g/dL (32.0-36.0); Mean Corpuscular Volume 85.4 fL (80.0-100.0); Monocytes # (auto) 0.3 10 ^3/uL (0-1.3); Monocytes % (auto) 2.5 % (0.0-12.0); Neutrophils # (auto) 10.7 10 ^3/uL (1.6-8.6); Neutrophils % (auto) 79.4 % (37.0-80.0); Nucleated Red Blood Cells % 0.1 %; Platelet Count (auto) 181 10^3/uL (140-450); Red Blood Cells 4.54 10^6/uL (4.0-5.20); Red Cell Distribution Width 14.9 % (11.8-14.3); White Blood Cell 13.4 10^3/uL (4.4-10.8)
[2024-06-24 05:58] LABS: Alanine Aminotransferase 38 U/L (7-40); Albumin 2.5 g/dL (3.2-4.8); Alkaline Phosphatase 232 U/L (46-116); Anion Gap 4 (5-15); Aspartate Aminotransferase 38 U/L (13-40); BUN/Creatinine Ratio 21.2 (10.0-20.0); Bilirubin, Total 0.6 mg/dL (0.2-1.0); Blood Urea Nitrogen 14 mg/dL (9-23); Calcium 8.1 mg/dL (8.7-10.4); Carbon Dioxide 25 mmol/L (20-30); Chloride 111 mmol/L (98-107); Glucose 157 mg/dL (74-106); Potassium 4.4 mmol/L (3.5-5.1); Sodium 140 mmol/L (136-145); Total Protein 5.1 g/dL (5.7-8.2)
[2024-06-24] MEDS: LIDOCAINE VISCOUS 2% 15ML UD PO ONE (08:45)
[2024-06-24] MEDS: MIDAZOLAM HCL 2MG/2ML 2ml VIAL (1mg/ml) IV ONE (08:45)
[2024-06-24] MEDS: fentaNYL CITRATE 100 MCG/2 ML VL IV ONE (08:45)
[2024-06-24 12:53] LABS: INR 1.04 (0.9-1.15); Partial Thromboplastin Time 30.1 SEC (24.5-34.5)
[2024-06-24] MEDS: LIDOCAINE 1% (LOCAL ANESTH.) PF 5ml SDV ID ONE (16:30)
[2024-06-24] MEDS: LISINOPRIL 5 MG TAB PO ONE (17:29)
[2024-06-24] MEDS: SODIUM CHLOR 0.9% PF (SALINE LOCK) 10ML VIAL/SYR IV SCH (21:10)
[2024-06-25] VITALS (9 sets, daily range): BP systolic 110–150; BP diastolic 45–79; PULSE 58–67; RESP 17–19; TEMP 97.6–98.5; O2SAT 96–98
[2024-06-25 06:15] LABS: Basophils # (auto) 0 10 ^3/uL (0-0.2); Basophils % (auto) 0.3 % (0.0-2.0); Eosinophils # (auto) 0 10 ^3/uL (0-0.8); Eosinophils % (auto) 0.3 % (0.0-7.0); Hematocrit 35.5 % (36.0-46.0); Hemoglobin 11.8 g/dL (12.2-16.2); Lymphocytes # (auto) 1.1 10 ^3/uL (0.4-5.4); Lymphocytes % (auto) 12.4 % (10.0-50.0); Mean Corpuscular Hemoglobin 28.4 pg (28.0-32.0); Mean Corpuscular Hgb Conc. 33.2 g/dL (32.0-36.0); Mean Corpuscular Volume 85.4 fL (80.0-100.0); Monocytes # (auto) 0.2 10 ^3/uL (0-1.3); Monocytes % (auto) 2.5 % (0.0-12.0); Neutrophils # (auto) 7.6 10 ^3/uL (1.6-8.6); Neutrophils % (auto) 84.5 % (37.0-80.0); Nucleated Red Blood Cells % 0.3 %; Platelet Count (auto) 201 10^3/uL (140-450); Red Blood Cells 4.15 10^6/uL (4.0-5.20); Red Cell Distribution Width 14.7 % (11.8-14.3)
[2024-06-25 06:29] LABS: Alanine Aminotransferase 39 U/L (7-40); Albumin 2.3 g/dL (3.2-4.8); Alkaline Phosphatase 220 U/L (46-116); Anion Gap 6 (5-15); Aspartate Aminotransferase 25 U/L (13-40); BUN/Creatinine Ratio 25.9 (10.0-20.0); Blood Urea Nitrogen 14 mg/dL (9-23); Calcium 7.7 mg/dL (8.7-10.4); Carbon Dioxide 25 mmol/L (20-30); Chloride 110 mmol/L (98-107); Glucose 127 mg/dL (74-106); Potassium 3.9 mmol/L (3.5-5.1); Sodium 141 mmol/L (136-145)
[2024-06-25 06:30] LABS: Bilirubin, Total 0.6 mg/dL (0.2-1.0); Total Protein 4.7 g/dL (5.7-8.2)
[2024-06-25] MEDS: LISINOPRIL 5 MG TAB PO SCH (11:12)
[2024-06-25] MEDS: FLUCONAZOLE 100 MG TAB PO ONE (14:20)
[2024-06-25] MEDS: IOHEXOL 300 MG/ML 100ML BOTTLE IJ ONE ×2 (21:37)
[2024-06-25] MEDS: diphenhdrAMINE HCL 50 MG/1 ML VL IV PRN (22:08)
[2024-06-26] VITALS (7 sets, daily range): BP systolic 108–146; BP diastolic 52–67; PULSE 58–72; RESP 16–18; TEMP 97.5–98.1; O2SAT 96–100
[2024-06-26] MEDS: hydrOXYzine HCL 10 MG TAB PO ONE (01:00)
[2024-06-26 05:57] LABS: Basophils # (auto) 0 10 ^3/uL (0-0.2); Basophils % (auto) 0.2 % (0.0-2.0); Eosinophils # (auto) 0.4 10 ^3/uL (0-0.8); Eosinophils % (auto) 4.2 % (0.0-7.0); Hematocrit 35.6 % (36.0-46.0); Hemoglobin 11.5 g/dL (12.2-16.2); Lymphocytes # (auto) 1.2 10 ^3/uL (0.4-5.4); Lymphocytes % (auto) 12.1 % (10.0-50.0); Mean Corpuscular Hemoglobin 28.2 pg (28.0-32.0); Mean Corpuscular Hgb Conc. 32.4 g/dL (32.0-36.0); Mean Corpuscular Volume 87.1 fL (80.0-100.0); Monocytes # (auto) 0.3 10 ^3/uL (0-1.3); Monocytes % (auto) 3.5 % (0.0-12.0); Nucleated Red Blood Cells % 0.1 %; Platelet Count (auto) 237 10^3/uL (140-450); Red Blood Cells 4.09 10^6/uL (4.0-5.20); Red Cell Distribution Width 15.4 % (11.8-14.3)
[2024-06-26 06:42] LABS: Alanine Aminotransferase 30 U/L (7-40); Albumin 2.2 g/dL (3.2-4.8); Alkaline Phosphatase 188 U/L (46-116); Anion Gap 8 (5-15); Aspartate Aminotransferase 17 U/L (13-40); Bilirubin, Total 0.5 mg/dL (0.2-1.0); Blood Urea Nitrogen 14 mg/dL (9-23); Calcium 7.7 mg/dL (8.7-10.4); Carbon Dioxide 24 mmol/L (20-30); Chloride 110 mmol/L (98-107); Glucose 96 mg/dL (74-106); Potassium 3.8 mmol/L (3.5-5.1); Sodium 142 mmol/L (136-145); Total Protein 4.6 g/dL (5.7-8.2)
[2024-06-26] MEDS: FLUCONAZOLE 100 MG TAB PO SCH (11:13)
[2024-06-26] MEDS: predniSONE 20 MG TAB PO SCH (11:13)
[2024-06-26] MEDS: LIDOCAINE 1% (LOCAL ANESTH.) PF 5ml SDV ID ONE (15:09)
[2024-06-26] MEDS: VANCOMYCIN 1.25GM/250ML 250 ML IV SCH (15:31)
[2024-06-26] MEDS: LORATADINE 10 MG TAB PO ONE (18:16)
[2024-06-26] MEDS: APIXABAN 5 MG TAB PO SCH (21:32)
[2024-06-26] MEDS: SODIUM CHLOR 0.9% PF (SALINE LOCK) 10ML VIAL/SYR IV SCH (21:42)
[2024-06-27 05:00] VITALS: BP 138/65; PULSE 63; RESP 17; TEMP 97.7; O2SAT 96
[2024-06-27 06:37] LABS: Basophils # (auto) 0 10 ^3/uL (0-0.2); Basophils % (auto) 0.3 % (0.0-2.0); Eosinophils # (auto) 0.5 10 ^3/uL (0-0.8); Eosinophils % (auto) 5.4 % (0.0-7.0); Hematocrit 34.1 % (36.0-46.0); Hemoglobin 11.3 g/dL (12.2-16.2); Lymphocytes # (auto) 1.2 10 ^3/uL (0.4-5.4); Lymphocytes % (auto) 12.9 % (10.0-50.0); Mean Corpuscular Hemoglobin 28.1 pg (28.0-32.0); Mean Corpuscular Hgb Conc. 33.2 g/dL (32.0-36.0); Mean Corpuscular Volume 84.7 fL (80.0-100.0); Monocytes # (auto) 0.4 10 ^3/uL (0-1.3); Monocytes % (auto) 4.1 % (0.0-12.0); Neutrophils % (auto) 77.3 % (37.0-80.0); Nucleated Red Blood Cells % 0.1 %; Platelet Count (auto) 284 10^3/uL (140-450); Red Blood Cells 4.02 10^6/uL (4.0-5.20); White Blood Cell 9.1 10^3/uL (4.4-10.8)
[2024-06-27 06:46] LABS: Alanine Aminotransferase 28 U/L (7-40); Albumin 2.3 g/dL (3.2-4.8); Alkaline Phosphatase 154 U/L (46-116); Anion Gap 6 (5-15); Aspartate Aminotransferase 13 U/L (13-40); BUN/Creatinine Ratio 32.1 (10.0-20.0); Bilirubin, Total 0.4 mg/dL (0.2-1.0); Blood Urea Nitrogen 17 mg/dL (9-23); Calcium 7.6 mg/dL (8.7-10.4); Carbon Dioxide 27 mmol/L (20-30); Chloride 111 mmol/L (98-107); Glucose 59 mg/dL (74-106); Potassium 3.3 mmol/L (3.5-5.1); Sodium 144 mmol/L (136-145); Total Protein 4.4 g/dL (5.7-8.2)
[2024-06-27 08:00] VITALS: PULSE 60
[2024-06-27 08:46] VITALS: BP 116/70; PULSE 69; RESP 20; TEMP 98.7; O2SAT 98
[2024-06-27] MEDS: LORATADINE 10 MG TAB PO SCH (11:19)
[2024-06-27 11:54] VITALS: BP 122/50; PULSE 18; RESP 18; TEMP 98.7; O2SAT 98
[2024-06-27 16:06] VITALS: BP 120/49; PULSE 71; RESP 20; TEMP 98.4; O2SAT 95
[2024-06-27] MEDS ORDERED: APIX5TAB PO (17:52)
[2024-06-27] MEDS ORDERED: LISI-275 PO (17:52)
[2024-06-27] MEDS ORDERED: ATOR20TA50 PO (17:52)
[2024-06-27] MEDS ORDERED: LORA-483 PO (17:52)
[2024-06-27] MEDS ORDERED: POTASSIUM CHL 20 Meq TABLET PO ONE (18:00)
[2024-06-27] MEDS ORDERED: PRED20TA2 PO (19:31)
== END 2024-06-27 18:24 | disposition home health service (06) | DRG 871 ==
LOC: EDBD 08:42 → ER 08:48 → TELE 12:53 → TELE-CENTR 06-19 17:30 → CENTRAL 06-26 23:12
PROVIDERS: ADMIT Internal Medicine Pulmonary Disease; ATTEND Internal Medicine Pulmonary Disease
PROC: 02HV33Z Insertion of Infusion Device into Superior Vena Cava, Percutaneous Approach (ICD-10-PCS; principal; 2024-06-17)
PROC: B548ZZA Ultrasonography of Superior Vena Cava, Guidance (ICD-10-PCS; 2024-06-17)
PROC: 02HV33Z Insertion of Infusion Device into Superior Vena Cava, Percutaneous Approach (ICD-10-PCS; 2024-06-24)
PROC: B548ZZA Ultrasonography of Superior Vena Cava, Guidance (ICD-10-PCS; 2024-06-24)
PROC: B24BZZ4 Ultrasonography of Heart with Aorta, Transesophageal (ICD-10-PCS; 2024-06-24)
PROC: 02HV33Z Insertion of Infusion Device into Superior Vena Cava, Percutaneous Approach (ICD-10-PCS; 2024-06-26)
PROC: B548ZZA Ultrasonography of Superior Vena Cava, Guidance (ICD-10-PCS; 2024-06-26)
DX: A41.02 Sepsis due to Methicillin resistant Staphylococcus aureus (principal); E11.10 Type 2 diabetes mellitus with ketoacidosis without coma; J69.0 Pneumonitis due to inhalation of food and vomit; G93.41 Metabolic encephalopathy; R65.21 Severe sepsis with septic shock; J96.01 Acute respiratory failure with hypoxia; J15.9 Unspecified bacterial pneumonia; J15.69 Pneumonia due to other Gram-negative bacteria; N17.9 Acute kidney failure, unspecified; E87.0 Hyperosmolality and hypernatremia; D68.59 Other primary thrombophilia; E87.1 Hypo-osmolality and hyponatremia; N13.30 Unspecified hydronephrosis; J45.909 Unspecified asthma, uncomplicated; D72.10 Eosinophilia, unspecified; E78.5 Hyperlipidemia, unspecified; I10 Essential (primary) hypertension; I48.0 Paroxysmal atrial fibrillation; E86.0 Dehydration; E66.9 Obesity, unspecified; E55.9 Vitamin D deficiency, unspecified; I34.0 Nonrheumatic mitral (valve) insufficiency; Z88.1 Allergy status to other antibiotic agents; Z68.29 Body mass index [BMI] 29.0-29.9, adult; Z79.899 Other long term (current) drug therapy
CPT/HCPCS: 36415; 36569; 36600; 70450; 71045; 74177; 76775; 76937; 80048; 80053; 80061; 80202; 80307; 80320; 81001; 82010; 82043; 82140; 82306; 82550; 82570; 82607; 82746; 82805; 82962; 83036; 83516; 83605; 83690; 83735; 83930; 84100; 84133; 84156; 84295; 84300; 84443; 84484; 85007; 85025; 85027; 85610; 85730; 86038; 86225; 86235; 86592; 86703; 86706; 86803; 87040; 87077; 87086; 87088; 87186; 87340; 87426; 87804; 93005; 93306; 93312; 96365; 96375; 97110; 97116; 97163; 97530; 99152; 99291; G0378; J0692; J1815; J2250; J2470; J2543; J3490; J7060

== ENCOUNTER 2024-07-01 19:27 | Inpatient (IN) | payer MEDICARE ==
[~2024-07-01] VITALS: Ht 157.5 cm; Wt 76.7 kg
[~2024-07-01 19:27] MED LIST changes: +APIX5TAB PO; +ATOR20TA50 PO; -CEPH500C PO; +LISI-275 PO; +LORA-483 PO; -METH4PAK PO; +PRED20TA2 PO; -TRIA0.1O TOP
[2024-07-01] MEDS: SODIUM CHLORIDE 0.9% 1,000 ML IV ONE ×3 (20:15→23:28)
[2024-07-01 20:20] VITALS: PULSE 147; RESP 18; O2SAT 98
[2024-07-01 20:47] LABS: Basophils # (auto) 0 10 ^3/uL (0-0.2); Basophils % (auto) 0.5 % (0.0-2.0); Eosinophils # (auto) 0.9 10 ^3/uL (0-0.8); Eosinophils % (auto) 13.8 % (0.0-7.0); Hematocrit 41.1 % (36.0-46.0); Hemoglobin 13.3 g/dL (12.2-16.2); Lymphocytes # (auto) 0.9 10 ^3/uL (0.4-5.4); Lymphocytes % (auto) 14.4 % (10.0-50.0); Mean Corpuscular Hemoglobin 28.6 pg (28.0-32.0); Mean Corpuscular Hgb Conc. 32.2 g/dL (32.0-36.0); Mean Corpuscular Volume 88.6 fL (80.0-100.0); Monocytes # (auto) 0.1 10 ^3/uL (0-1.3); Monocytes % (auto) 2.4 % (0.0-12.0); Neutrophils # (auto) 4.3 10 ^3/uL (1.6-8.6); Neutrophils % (auto) 68.9 % (37.0-80.0); Nucleated Red Blood Cells % 0.1 %; Platelet Count (auto) 243 10^3/uL (140-450); Red Blood Cells 4.64 10^6/uL (4.0-5.20); Red Cell Distribution Width 17.2 % (11.8-14.3); White Blood Cell 6.2 10^3/uL (4.4-10.8)
[2024-07-01 20:55] LABS: Base Excess -1.7 mmol/L (-2.0-3.0)
[2024-07-01 21:00] LABS: Alanine Aminotransferase 46 U/L (7-40); Albumin 2.8 g/dL (3.2-4.8); Alkaline Phosphatase 410 U/L (46-116); Anion Gap 11 (5-15); Aspartate Aminotransferase 42 U/L (13-40); BUN/Creatinine Ratio 27.3 (10.0-20.0); Bilirubin, Total 0.5 mg/dL (0.2-1.0); Blood Urea Nitrogen 33 mg/dL (9-23); Calcium 8.1 mg/dL (8.7-10.4); Carbon Dioxide 22 mmol/L (20-30); Chloride 105 mmol/L (98-107); Potassium 4.4 mmol/L (3.5-5.1); Sodium 138 mmol/L (136-145); Total Protein 5.1 g/dL (5.7-8.2)
[2024-07-01 21:06] LABS: INR 1.03 (0.9-1.15); Partial Thromboplastin Time 25.6 SEC (24.5-34.5); Prothrombin Time 10.9 sec (9.3-11.8)
[2024-07-01 21:07] LABS: Glucose 633 mg/dL (74-106); Lactic Acid w/Reflex 5.1 mmol/L (0.4-2.0)
[2024-07-01] MEDS: PIPERACILLIN-TAZOB 3.375GM 100 ML IV ONE (21:15)
[2024-07-01] MEDS: METOPROLOL TARTRATE 1MG/1ML-5ML VIAL IV ONE (21:58)
[2024-07-01] MEDS: ASPirin-EC 325mg tab PO ONE (23:12)
[2024-07-01] MEDS: InsuLIN REG 1unit/0.01ml Soln (100units/ml) IV ONE (23:16)
[2024-07-02] MEDS: diphenhdrAMINE HCL 50 MG/1 ML VL IV ONE (00:08)
[2024-07-02 00:17] LABS: Urine Bacteria FEW /hpf (None Seen); Urine Blood Negative /uL (Negative); Urine Clarity Clear (Clear); Urine Color Light-Yellow (Yellow); Urine Mucus FEW (None Seen); Urine Protein, UAD Negative (Negative); Urine Specific Gravity 1.034 (1.001-1.035); Urine Urobilinogen Normal (Negative); Urine WBC 16 /hpf (0 - 5); Urine pH 5.5 (5.0-9.0)
[2024-07-02] MEDS ORDERED: ACETAMINOPHEN 325 MG TAB PO PRN (03:45)
[2024-07-02] MEDS ORDERED: ONDANSETRON HCL 4 MG/2 ML VIAL IV PRN (03:45)
[2024-07-02] MEDS ORDERED: VANCOMYCIN PER PHARMACY 0 MG IV SCH (03:45)
[2024-07-02] MEDS ORDERED: MORPHINE SULFATE INJ 2 MG/ml SYRG IV PRN (03:45)
[2024-07-02] MEDS ORDERED: NITROGLYCERIN 0.4 MG SL TAB SL PRN (03:45)
[2024-07-02] MEDS ORDERED: DEXTROSE (50%) 50ML SYRG IV PRN ×2 (04:00→15:45)
[2024-07-02] MEDS: ACCU-CHEK COMFORT CURVE STRIP VI SCH ×2 (04:10→17:10)
[2024-07-02] MEDS: InsuLIN REG 1unit/0.01ml Soln (100units/ml) SC SCH ×3 (04:15→22:46)
[2024-07-02] MEDS: ENOXAPARIN SOD 100 MG/1 ML SYRINGE SC ONE (04:19)
[2024-07-02] MEDS: VANCOMYCIN 1.25GM/250ML 250 ML IV ONE (04:27)
[2024-07-02] MEDS: SODIUM CHLORIDE 0.9% 1,000 ML IV SCH (04:36)
[2024-07-02] MEDS: ALBUMIN 5% 250 ML IV ONE (05:40)
[2024-07-02 07:50] VITALS: PULSE 81; RESP 15; O2SAT 99
[2024-07-02] MEDS: PANTOPRAZOLE 40 MG/10 ML VIAL INJ IV SCH (10:09)
[2024-07-02] MEDS: LORATADINE 10 MG TAB PO SCH (10:10)
[2024-07-02] MEDS: ASPirin 81 mg TAB PO SCH (10:10)
[2024-07-02 15:52] LABS: Alanine Aminotransferase 30 U/L (7-40); Albumin 2.5 g/dL (3.2-4.8); Alkaline Phosphatase 236 U/L (46-116); Anion Gap 7 (5-15); Aspartate Aminotransferase 14 U/L (13-40); BUN/Creatinine Ratio 32.1 (10.0-20.0); Blood Urea Nitrogen 27 mg/dL (9-23); Calcium 7.9 mg/dL (8.7-10.4); Carbon Dioxide 21 mmol/L (20-30); Chloride 113 mmol/L (98-107); Glucose 150 mg/dL (74-106); Magnesium 1.8 mg/dL (1.6-2.6); Sodium 141 mmol/L (136-145)
[2024-07-02 15:53] LABS: Bilirubin, Total 0.4 mg/dL (0.2-1.0); Total Protein 4.4 g/dL (5.7-8.2)
[2024-07-02 16:01] LABS: Lactic Acid w/Reflex 3.8 mmol/L (0.4-2.0)
[2024-07-02 16:20] LABS: Hematocrit 33.7 % (36.0-46.0); Hemoglobin 11.1 g/dL (12.2-16.2); Mean Corpuscular Hemoglobin 28.9 pg (28.0-32.0); Mean Corpuscular Hgb Conc. 33.1 g/dL (32.0-36.0); Mean Corpuscular Volume 87.4 fL (80.0-100.0); Platelet Count (auto) 172 10^3/uL (140-450); Red Blood Cells 3.85 10^6/uL (4.0-5.20); Red Cell Distribution Width 16.4 % (11.8-14.3); White Blood Cell 5.9 10^3/uL (4.4-10.8)
[2024-07-02 16:23] LABS: Basophils % (manual) 0 (0.0-2.0); Blast Cells 0; Metamyelocytes % 0; Myelocytes % 0; Promyelocytes % 0; Reactive Lymphocytes 0
[2024-07-02 17:07] LABS: Band Neutrophils % (manual) 3; Eosinophils % (manual) 30 (0-7); Lymphocytes % (manual) 9 (10.0-50.0); Monocytes % (manual) 2 (0-12)
[2024-07-02 17:08] LABS: Anisocytosis Slight; Platelet Estimate Adequate
[2024-07-02 19:35] VITALS: RESP 15; O2SAT 99
[2024-07-02] MEDS: MEROPENEM 1GM IVPB 50 ML IV SCH (22:45)
[2024-07-02 23:31] VITALS: PULSE 86; RESP 18; O2SAT 99
[2024-07-03] VITALS (8 sets, daily range): BP systolic 103–143; BP diastolic 52–63; PULSE 64–89; RESP 16–22; TEMP 97.4–98.1; O2SAT 99–100
[2024-07-03] MEDS: VANCOMYCIN 1GM/200ML 200 ML IV SCH (05:00)
[2024-07-03] MEDS: MUPIROCIN 2% OINT 15gm or 22gm TOP SCH (10:00)
[2024-07-03 11:02] LABS: Hematocrit 35.2 % (36.0-46.0); Hemoglobin 11.6 g/dL (12.2-16.2); Mean Corpuscular Hemoglobin 28.3 pg (28.0-32.0); Mean Corpuscular Volume 85.7 fL (80.0-100.0); Platelet Count (auto) 180 10^3/uL (140-450); Red Blood Cells 4.11 10^6/uL (4.0-5.20); Red Cell Distribution Width 16.6 % (11.8-14.3); White Blood Cell 5.1 10^3/uL (4.4-10.8)
[2024-07-03 11:08] LABS: Band Neutrophils % (manual) 0; Basophils % (manual) 0 (0.0-2.0); Blast Cells 0; Metamyelocytes % 0; Myelocytes % 0; Promyelocytes % 0; Reactive Lymphocytes 0
[2024-07-03 11:27] LABS: Alanine Aminotransferase 31 U/L (7-40); Alkaline Phosphatase 253 U/L (46-116); Anion Gap 5 (5-15); Calcium 7.8 mg/dL (8.7-10.4); Carbon Dioxide 22 mmol/L (20-30); Chloride 112 mmol/L (98-107); Glucose 234 mg/dL (74-106); Potassium 4.5 mmol/L (3.5-5.1); Sodium 139 mmol/L (136-145)
[2024-07-03 11:28] LABS: Albumin 2.6 g/dL (3.2-4.8); Aspartate Aminotransferase 21 U/L (13-40); BUN/Creatinine Ratio 36.6 (10.0-20.0); Bilirubin, Total 0.4 mg/dL (0.2-1.0); Blood Urea Nitrogen 30 mg/dL (9-23); Total Protein 4.7 g/dL (5.7-8.2)
[2024-07-03] MEDS: ENOXAPARIN SOD 40 MG/0.4 ML SYRINGE SC SCH (12:01)
[2024-07-03 12:09] LABS: Eosinophils % (manual) 25 (0-7); Lymphocytes % (manual) 14 (10.0-50.0); Monocytes % (manual) 2 (0-12)
[2024-07-03 12:10] LABS: Platelet Estimate Adequate
[2024-07-03 23:01] LABS: COVID19 ANTIGEN SOFIA FIA NEGATIVE (NEGATIVE); Rapid Influenza A Negative (Negative); Rapid Influenza B Negative (Negative)
[2024-07-04] VITALS (7 sets, daily range): BP systolic 111–124; BP diastolic 52–74; PULSE 76–88; RESP 18–19; TEMP 97.5–97.8; O2SAT 94–100
[2024-07-04 04:24] LABS: INR 1.06 (0.9-1.15); Partial Thromboplastin Time 35.8 SEC (24.5-34.5); Prothrombin Time 11.2 sec (9.3-11.8)
[2024-07-04 04:25] LABS: Hematocrit 30.4 % (36.0-46.0); Hemoglobin 10.1 g/dL (12.2-16.2); Mean Corpuscular Hemoglobin 28.4 pg (28.0-32.0); Mean Corpuscular Hgb Conc. 33.1 g/dL (32.0-36.0); Platelet Count (auto) 144 10^3/uL (140-450); Red Blood Cells 3.54 10^6/uL (4.0-5.20); Red Cell Distribution Width 16.3 % (11.8-14.3); White Blood Cell 6.7 10^3/uL (4.4-10.8)
[2024-07-04 04:27] LABS: Basophils % (manual) 0 (0.0-2.0); Blast Cells 0; Metamyelocytes % 0; Myelocytes % 0; Promyelocytes % 0; Reactive Lymphocytes 0
[2024-07-04 04:32] LABS: Alanine Aminotransferase 24 U/L (7-40); Albumin 2.1 g/dL (3.2-4.8); Alkaline Phosphatase 206 U/L (46-116); Anion Gap 8 (5-15); Aspartate Aminotransferase 12 U/L (13-40); BUN/Creatinine Ratio 43.1 (10.0-20.0); Blood Urea Nitrogen 28 mg/dL (9-23); Calcium 7.5 mg/dL (8.7-10.4); Carbon Dioxide 23 mmol/L (20-30); Chloride 111 mmol/L (98-107); Glucose 142 mg/dL (74-106); Magnesium 1.8 mg/dL (1.6-2.6); Potassium 4.3 mmol/L (3.5-5.1); Sodium 142 mmol/L (136-145)
[2024-07-04 04:33] LABS: Bilirubin, Total 0.4 mg/dL (0.2-1.0)
[2024-07-04 06:46] LABS: Band Neutrophils % (manual) 2; Eosinophils % (manual) 44 (0-7); Lymphocytes % (manual) 18 (10.0-50.0); Monocytes % (manual) 2 (0-12); Platelet Estimate Adequate
[2024-07-04 06:47] LABS: Anisocytosis Slight
[2024-07-04] MEDS ORDERED: VANCOMYCIN PER PHARMACY 0 MG IV SCH ×2 (10:00)
[2024-07-04] MEDS: VANCOMYCIN 1GM/200ML 200 ML IV ONE (10:00)
[2024-07-04] MEDS: HYDROcodone-ACET 5/325MG TAB PO PRN (10:32)
[2024-07-04] MEDS: predniSONE 20 MG TAB PO SCH (10:32)
[2024-07-04] MEDS: LIDOCAINE 1% (LOCAL ANESTH.) PF 5ml SDV ID ONE (14:15)
[2024-07-04] MEDS: VANCOMYCIN 1GM/200ML 200 ML IV SCH (21:10)
[2024-07-04] MEDS: SODIUM CHLOR 0.9% PF (SALINE LOCK) 10ML VIAL/SYR IV SCH (21:11)
[2024-07-04] MEDS: APIXABAN 5 MG TAB PO SCH (21:11)
[2024-07-05 05:00] VITALS: BP_SYST 137; BP_SYST 148; BP_DIAS 70; BP_DIAS 76; PULSE 79; RESP 16; TEMP 98.7; O2SAT 98
[2024-07-05 07:10] LABS: Hematocrit 31.6 % (36.0-46.0); Hemoglobin 10.6 g/dL (12.2-16.2); Mean Corpuscular Hemoglobin 28.9 pg (28.0-32.0); Mean Corpuscular Hgb Conc. 33.5 g/dL (32.0-36.0); Mean Corpuscular Volume 86.1 fL (80.0-100.0); Platelet Count (auto) 134 10^3/uL (140-450); Red Blood Cells 3.67 10^6/uL (4.0-5.20); Red Cell Distribution Width 16.4 % (11.8-14.3); White Blood Cell 5.1 10^3/uL (4.4-10.8)
[2024-07-05 07:24] LABS: Basophils % (manual) 0 (0.0-2.0); Blast Cells 0; Metamyelocytes % 0; Myelocytes % 0; Promyelocytes % 0; Reactive Lymphocytes 0
[2024-07-05 07:55] VITALS: RESP 18; O2SAT 93
[2024-07-05 08:43] VITALS: BP 137/70; PULSE 87; RESP 17; TEMP 98.2; O2SAT 98
[2024-07-05 11:56] LABS: Band Neutrophils % (manual) 5; Eosinophils % (manual) 34 (0-7); Lymphocytes % (manual) 6 (10.0-50.0); Monocytes % (manual) 1 (0-12); Platelet Estimate Adequate
== END 2024-07-05 13:00 | DRG 871 ==
LOC: EDBD 19:27 → ER 19:27 → EDUNIT# 19:27 → TELE 07-02 03:46 → TELE-CENTR 07-02 23:31
PROVIDERS: ADMIT Nurse Practitioner; ATTEND Internal Medicine Geriatric Medicine
PROC: 02HV33Z Insertion of Infusion Device into Superior Vena Cava, Percutaneous Approach (ICD-10-PCS; principal; 2024-07-04)
PROC: B548ZZA Ultrasonography of Superior Vena Cava, Guidance (ICD-10-PCS; 2024-07-04)
DX: A41.02 Sepsis due to Methicillin resistant Staphylococcus aureus (principal); G93.41 Metabolic encephalopathy; I21.A1 Myocardial infarction type 2; N17.0 Acute kidney failure with tubular necrosis; E44.0 Moderate protein-calorie malnutrition; E11.65 Type 2 diabetes mellitus with hyperglycemia; E78.2 Mixed hyperlipidemia; I10 Essential (primary) hypertension; J45.909 Unspecified asthma, uncomplicated; E86.0 Dehydration; L20.9 Atopic dermatitis, unspecified; Z20.822 Contact with and (suspected) exposure to COVID-19; E83.41 Hypermagnesemia; I48.91 Unspecified atrial fibrillation; Z88.8 Allergy status to other drugs, medicaments and biological substances; Z79.899 Other long term (current) drug therapy; Z79.01 Long term (current) use of anticoagulants; Z91.199 Patient's noncompliance with other medical treatment and regimen due to unspecified reason; Z68.28 Body mass index [BMI] 28.0-28.9, adult
CPT/HCPCS: 36415; 36569; 36600; 71045; 80053; 81001; 82010; 82565; 82805; 82962; 83605; 83735; 83880; 84484; 85007; 85025; 85027; 85610; 85730; 87040; 87077; 87081; 87086; 87186; 87426; 87804; 93005; 96361; 96365; 96375; 97110; 97116; 97163; 97530; 99291; G0378; J1815; J2185; J2470; J2543

== ENCOUNTER 2024-07-05 17:49 | Emergency (ER) | payer MEDICARE ==
[~2024-07-05] VITALS: Ht 165.1 cm; Wt 91.0 kg
[2024-07-05 18:49] VITALS: O2SAT 98
[2024-07-05 19:20] VITALS: PULSE 86; RESP 10; O2SAT 98
[2024-07-06 01:20] VITALS: BP 142/81; PULSE 92; RESP 15; TEMP 97.8; O2SAT 95
== END 2024-07-06 01:15 | disposition short-term general hospital (02) ==
LOC: EDUNIT# 17:49 → ER 17:49 → EDBD 17:49 → ER 07-06 01:15
DX: L51.1 Stevens-Johnson syndrome (principal); R78.81 Bacteremia; B95.62 Methicillin resistant Staphylococcus aureus infection as the cause of diseases classified elsewhere; E11.65 Type 2 diabetes mellitus with hyperglycemia; R21 Rash and other nonspecific skin eruption; I10 Essential (primary) hypertension; E11.10 Type 2 diabetes mellitus with ketoacidosis without coma; I48.91 Unspecified atrial fibrillation; E78.5 Hyperlipidemia, unspecified; Z88.8 Allergy status to other drugs, medicaments and biological substances; J45.909 Unspecified asthma, uncomplicated; Z79.899 Other long term (current) drug therapy